=== PATIENT | female | born 1985 | race Two or more races ===

== ENCOUNTER 2016-12-10 20:59 | Emergency (ER) | payer SELFPAY ==
[2016-12-10] MEDS ORDERED: ONDANSETRON 4 MG TAB.RAPDIS PO ONE (23:12)
[2016-12-10] MEDS ORDERED: OXYCODONE-ACETAMINOPHEN 5-325 MG TABLET PO ONE (23:12)
--- NOTE | 2016-12-10 23:14 | ER Document Report ---
ED Medical Screen (RME) - General Chief Complaint: Back Pain Stated Complaint: BACK PAIN Time Seen by Provider: 12/10/16 23:12 Notes: 31-year-old female, chief complaint of upper abdominal pain and flank pain, she states if she eats she vomits, she was getting chills at home. Symptoms worsening over the past few days and now much worse today. Patient denies any urinary symptoms at all. Denies any medical history including surgery, medications, alcohol. 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 TRAVEL OUTSIDE OF THE [place] IN LAST 30 DAYS: No - Related Data Allergies/Adverse Reactions: No Known Allergies Allergy (Verified 12/10/16 22:11) Past Medical History - Social History Chew tobacco use (# tins/day): No Frequency of alcohol use: None Drug Abuse: None Renal/ Medical History: Denies: Hx Peritoneal Dialysis - Immunizations Hx Diphtheria, Pertussis, Tetanus Vaccination: No Physical Exam - Vital signs Vitals: Temp Pulse Resp BP Pulse Ox 97.6 F 69 20 126/84 H 99 12/10/16 22:14 12/10/16 22:14 12/10/16 22:14 12/10/16 22:14 12/10/16 22:14 - Abdominal Tenderness: Tender - Tender in right upper quadrant and epigastric areas - Back Back: No: Tender, CVA tenderness - Nontender bilaterally Course - Vital Signs Vital signs: Temp Pulse Resp BP Pulse Ox 97.6 F 69 20 126/84 H 99 12/10/16 22:14 12/10/16 22:14 12/10/16 22:14 12/10/16 22:14 12/10/16 22:14
[2016-12-11 00:40] LABS: ABSOLUTE BASOPHILS # (AUTO) 0.1 10^3/uL (0.0-0.2); ABSOLUTE EOSINOPHILS # (AUTO) 0.2 10^3/uL (0.0-0.6); ABSOLUTE LYMPHOCYTES (AUTO) 4.1 10^3/uL (0.5-4.7); ABSOLUTE MONOCYTES (AUTO) 0.8 10^3/uL (0.1-1.4); ABSOLUTE NEUT (AUTO) 6.8 10^3/uL (1.7-8.2); BASOPHILS % (AUTO) 0.5 % (0-2); EOSINOPHILS % (AUTO) 1.6 % (0-6); HEMATOCRIT 45.4 % (36.0-47.0); HEMOGLOBIN 15.1 g/dL (12.0-15.5); HGB HCT DIFFERENCE -0.1; LYMPHOCYTES % (AUTO) 34.2 % (13-45); MEAN CORPUSCULAR HEMOGLOBIN 29.9 pg (27.0-33.4); MEAN CORPUSCULAR HGB CONC 33.2 g/dL (32.0-36.0); MEAN CORPUSCULAR VOLUME 90 fl (80-97); MONOCYTES % (AUTO) 6.8 % (3-13); RED BLOOD COUNT 5.03 10^6/uL (3.72-5.28); RED CELL DISTRIBUTION WIDTH 12.7 % (11.5-14.0); SEGMENTED NEUTROPHILS % (AUTO) 56.9 % (42-78); WHITE BLOOD COUNT 11.9 10^3/uL (4.0-10.5)
[2016-12-11 00:46] LABS: APPEARANCE,URINE CLEAR; BILIRUBIN,URINE NEGATIVE (NEGATIVE); GLUCOSE, URINE NEGATIVE (NEGATIVE); KETONES,URINE NEGATIVE (NEGATIVE); LEUKOCYTE ESTERASE,URINE NEGATIVE (NEGATIVE); NITRITE,URINE NEGATIVE (NEGATIVE); PROTEIN,URINE NEGATIVE (NEGATIVE); URINE SPECIFIC GRAVITY 1.005; UROBILINOGEN,URINE NEGATIVE mg/dL (<2.0)
[2016-12-11 01:01] LABS: ALANINE AMINOTRANSFERASE 45 U/L (9-52); ALBUMIN 4.6 g/dL (3.5-5.0); ALKALINE PHOSPHATASE 68 U/L (38-126); ANION GAP 11 (5-19); ASPARTATE AMINO TRANSFERASE 25 U/L (14-36); BILIRUBIN,DIRECT 0.3 mg/dL (0.0-0.4); BILIRUBIN,TOTAL 0.6 mg/dL (0.2-1.3); BLOOD UREA NITROGEN 9 mg/dL (7-20); CALCIUM 10.3 mg/dL (8.4-10.2); CARBON DIOXIDE 28 mmol/L (22-30); CHLORIDE 101 mmol/L (98-107); CREATININE RESULT 0.66 mg/dL (0.52-1.25); GLUCOSE 92 mg/dL (75-110); LIPASE 60.1 U/L (23-300); POTASSIUM 4.2 mmol/L (3.6-5.0); SODIUM 139.6 mmol/L (137-145); TOTAL PROTEIN 7.7 g/dL (6.3-8.2)
--- NOTE | 2016-12-11 01:38 | RADIOLOGY REPORT (SQ) ---
EXAM DESCRIPTION: U/S ABDOMEN LIMITED W/O DOP COMPLETED DATE/TIME: 12/11/2016 12:58 am REASON FOR STUDY: RUQ pain, vomiting, chills COMPARISON: 7.31.15 TECHNIQUE: Dynamic and static grayscale images acquired of the abdomen and recorded on PACS. Additio nal selected color Doppler and spectral images recorded. LIMITATIONS: As below. FINDINGS: PANCREAS: Partially obscured due to bowel gas. LIVER: No masses. Mild hepatic steatosis. LIVER VASCULATURE: Normal directional flow of the main portal vein and hepatic veins. GALLBLADDER: No stones. Normal wall thickness. No pericholecystic fluid. ULTRASOUND-DETECTED MCCLENDON'S SIGN: Negative. INTRAHEPATIC DUCTS AND COMMON DUCT: 0.4 cm diameter CBD and intrahepatic ducts normal caliber. No joyce ling defects. INFERIOR VENA CAVA: Normal flow. AORTA: No aneurysm. RIGHT KIDNEY: Normal size. Normal echogenicity. No solid or suspicious masses. No hydronephrosis. No calcifications. PERITONEAL AND RIGHT PLEURAL SPACE: No ascites or effusions. OTHER: No other significant findings. IMPRESSION: No acute findings. Mild hepatic steatosis. Limited visualization of the pancreas. TECHNICAL DOCUMENTATION: JOB ID: [id number] [employer]- All Rights Reserved
--- NOTE | 2016-12-11 02:17 | ER Document Report ---
ED GI/ - General Chief Complaint: Back Pain Stated Complaint: BACK PAIN Time Seen by Provider: 12/10/16 23:12 Notes: Patient is a 31-year-old female, chief complaint of upper abdominal pain and flank pain, she states if she eats she vomits, she was getting chills at home. Symptoms worsening over the past few days and now much worse today. Patient denies any urinary symptoms at all. Denies any medical history including surgery, medications, alcohol. Patient Monegasque-speaking, used [employer] system. TRAVEL OUTSIDE OF THE [place] IN LAST 30 DAYS: No - Related Data Allergies/Adverse Reactions: No Known Allergies Allergy (Verified 12/10/16 22:11) Past Medical History - General Information source: Patient - Social History Smoking Status: Never Smoker Chew tobacco use (# tins/day): No Frequency of alcohol use: None Drug Abuse: None Lives with: Family Family History: Reviewed & Not Pertinent Patient has suicidal ideation: No Patient has homicidal ideation: No - Medical History Medical History: Negative Renal/ Medical History: Denies: Hx Peritoneal Dialysis Surgical Hx: Negative - Immunizations Immunizations up to date: Yes Hx Diphtheria, Pertussis, Tetanus Vaccination: Yes Review of Systems - Review of Systems Constitutional: No symptoms reported EENT: No symptoms reported Cardiovascular: No symptoms reported Respiratory: No symptoms reported Gastrointestinal: See HPI Genitourinary: See HPI Female Genitourinary: No symptoms reported Musculoskeletal: See HPI Skin: No symptoms reported Hematologic/Lymphatic: No symptoms reported Neurological/Psychological: No symptoms reported Physical Exam - Vital signs Vitals: Temp Pulse Resp BP Pulse Ox 97.6 F 69 20 126/84 H 99 12/10/16 22:14 12/10/16 22:14 12/10/16 22:14 12/10/16 22:14 12/10/16 22:14 Interpretation: Normal - General General appearance: Appears well In distress: None - patient calm and well appearing on re-evaluation - HEENT Head: Normocephalic, Atraumatic Eyes: Normal Conjunctiva: Normal Extraocular movements intact: Yes Eyelashes: Normal Pupils: PERRL Sinus: Normal Nasal: Normal Mouth/Lips: Normal Mucous membranes: Normal Pharynx: Normal Neck: Normal - Respiratory Respiratory status: No respiratory distress Chest status: Nontender Breath sounds: Normal. No: Decreased air movement, Wheezing Chest palpation: Normal - Cardiovascular Rhythm: Regular Heart sounds: Normal auscultation Murmur: No - Abdominal Inspection: Normal Distension: No distension Bowel sounds: Normal Tenderness: Tender - epigastric tenderness on exam, mild tenderness in the RUQ and LUQ. Lower abdomen is soft and unremarkable. Organomegaly: No organomegaly - Back Back: Normal, Nontender. No: Tender - Extremities General upper extremity: Normal inspection, Nontender, Normal color, Normal ROM , Normal temperature General lower extremity: Normal inspection, Nontender, Normal color, Normal ROM , Normal temperature, Normal weight bearing. No: Jayson's sign - Neurological Neuro grossly intact: Yes Cognition: Normal Orientation: AAOx4 Arline Coma Scale Eye Opening: Spontaneous [place] Coma Scale Verbal: Oriented [place] Coma Scale Motor: Obeys Commands [place] Coma Scale Total: 15 Speech: Normal Motor strength normal: LUE, RUE, LLE, RLE Sensory: Normal - Psychological Associated symptoms: Normal affect, Normal mood - Skin Skin Temperature: Warm Skin Moisture: Dry Skin Color: Normal Course - Re-evaluation Re-evalutation: CBC, chemistry, lipase, urine, hCG are all unremarkable. Ultrasound unremarkable as well, mild hepatic steatosis. Patient smiling and well- appearing on reexamination. Patient's symptoms happen every morning when she wakes up, has recently been worse after eating as well. Greatest suspicion at this time is gastritis/peptic ulcer disease, patient will be treated for this, also discussed possibility of gallbladder dyskinesis and recommendation of HIDA scan. Patient with no tenderness over her back, no CVA tenderness, unremarkable urine. Discussed follow-up and return precautions. 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 Patient states understanding and agreement. - Vital Signs Vital signs: Temp Pulse Resp BP Pulse Ox 97.5 F 57 L 18 137/82 H 98 12/11/16 02:39 12/11/16 02:39 12/11/16 02:39 12/11/16 02:39 12/11/16 02:39 - Laboratory Result Diagrams: 12/11/16 00:10 12/11/16 00:10 Laboratory results interpreted by me: 12/11/16 12/11/16 00:10 00:10 WBC 11.9 H Calcium 10.3 H Discharge - Discharge Clinical Impression: Upper abdominal pain, Flank pain Condition: Stable Disposition: HOME, SELF-CARE Additional Instructions: Rangel ultrasonido muestra robert vescula biliar normal. Erna anlisis de alex y orina son normales. Creo que esto es por la inflamacin en el estmago, clarisse vez robert lcera temprana, por favor tome los medicamentos para magaly (sucralfate y pepcid) todos los garcia, tome el phenergan si es necesario para las nuseas. Si erna sntomas no desaparecen, vaya a la oficina de referencia. Es posible que necesite robert exploracin HIDA. Vuelve a la [place] si algo no est kurt (vmitos ms , vmitos de alex, trevor kristen, dolor que empeora, fiebre, etc.). Prescriptions: Famotidine [Pepcid 20 mg Tablet] 20 mg PO BID #30 tablet Promethazine HCl [Phenergan 25 mg Tablet] 1 - 2 tab PO Q6H PRN #20 tablet PRN Reason: Sucralfate [Carafate 1 gm Tablet] 1 gm PO QID #20 tablet Forms: Return to Work Referrals: [facility] [Provider Group] - Follow up as needed
[2016-12-11] MEDS ORDERED: HYDROCODONE/ACETAMINOPHEN 5-325 MG 6 TAB/DSPK PO PRN (02:41)
[2016-12-11] MEDS ORDERED: SUCRALFATE 1 GM TABLET PO ONE (02:41)
[2016-12-11] MEDS ORDERED: FAMOTIDINE 20 MG TABLET PO ONE (02:41)
[2016-12-11 03:17] VITALS: BP 137/82
== END 2016-12-11 03:13 | disposition home or self-care (01) ==
LOC: ER 20:59
DX: R10.10 Upper abdominal pain, unspecified (principal); R10.9 Unspecified abdominal pain; K76.0 Fatty (change of) liver, not elsewhere classified; R11.10 Vomiting, unspecified; R68.83 Chills (without fever); R10.816 Epigastric abdominal tenderness; R10.811 Right upper quadrant abdominal tenderness; R10.812 Left upper quadrant abdominal tenderness
CPT/HCPCS: 99284; 36415; 83690; 85025; 81025; 80053; 81001; 76705; S0119

== ENCOUNTER 2016-12-28 13:42 | Emergency (ER) | payer SELFPAY ==
--- NOTE | 2016-12-28 13:52 | ER Document Report ---
ED Medical Screen (RME) - General Chief Complaint: Vaginal Bleeding Stated Complaint: VAGINAL BLEEDING X3 WEEKS Time Seen by Provider: 12/28/16 13:51 Notes: Vaginal bleeding for 3 weeks. I have greeted and performed a rapid initial assessment of this patient. A comprehensive ED assessment and evaluation of the patient, analysis of test results and completion of the medical decision making process will be conducted by additional ED providers. TRAVEL OUTSIDE OF THE [place] IN LAST 30 DAYS: No - Related Data Allergies/Adverse Reactions: No Known Allergies Allergy (Verified 12/28/16 13:44) Past Medical History Renal/ Medical History: Denies: Hx Peritoneal Dialysis - Immunizations Immunizations up to date: Yes Hx Diphtheria, Pertussis, Tetanus Vaccination: Yes Physical Exam - Vital signs Vitals: Temp Pulse Resp BP Pulse Ox 99.0 F 73 16 136/81 H 98 12/28/16 13:46 12/28/16 13:46 12/28/16 13:46 12/28/16 13:46 12/28/16 13:46 Course - Vital Signs Vital signs: Temp Pulse Resp BP Pulse Ox 99.0 F 73 16 136/81 H 98 12/28/16 13:46 12/28/16 13:46 12/28/16 13:46 12/28/16 13:46 12/28/16 13:46
[2016-12-28 14:10] LABS: ABSOLUTE EOSINOPHILS # (AUTO) 0.2 10^3/uL (0.0-0.6); ABSOLUTE MONOCYTES (AUTO) 0.7 10^3/uL (0.1-1.4); ABSOLUTE NEUT (AUTO) 5.6 10^3/uL (1.7-8.2); BASOPHILS % (AUTO) 0.5 % (0-2); EOSINOPHILS % (AUTO) 1.8 % (0-6); HEMATOCRIT 42.4 % (36.0-47.0); HEMOGLOBIN 14.2 g/dL (12.0-15.5); HGB HCT DIFFERENCE 0.2; LYMPHOCYTES % (AUTO) 31.3 % (13-45); MEAN CORPUSCULAR HEMOGLOBIN 30.5 pg (27.0-33.4); MEAN CORPUSCULAR HGB CONC 33.5 g/dL (32.0-36.0); MEAN CORPUSCULAR VOLUME 91 fl (80-97); MONOCYTES % (AUTO) 7.5 % (3-13); RED BLOOD COUNT 4.66 10^6/uL (3.72-5.28); RED CELL DISTRIBUTION WIDTH 12.8 % (11.5-14.0); SEGMENTED NEUTROPHILS % (AUTO) 58.9 % (42-78); WHITE BLOOD COUNT 9.5 10^3/uL (4.0-10.5)
[2016-12-28 14:31] LABS: ALANINE AMINOTRANSFERASE 34 U/L (9-52); ALBUMIN 4.2 g/dL (3.5-5.0); ALKALINE PHOSPHATASE 69 U/L (38-126); ANION GAP 11 (5-19); ASPARTATE AMINO TRANSFERASE 21 U/L (14-36); BILIRUBIN,DIRECT 0.2 mg/dL (0.0-0.4); BILIRUBIN,TOTAL 0.3 mg/dL (0.2-1.3); BLOOD UREA NITROGEN 13 mg/dL (7-20); CALCIUM 9.6 mg/dL (8.4-10.2); CARBON DIOXIDE 24 mmol/L (22-30); CHLORIDE 105 mmol/L (98-107); CREATININE RESULT 0.62 mg/dL (0.52-1.25); GLUCOSE 103 mg/dL (75-110); POTASSIUM 4.2 mmol/L (3.6-5.0); TOTAL PROTEIN 7.1 g/dL (6.3-8.2)
[2016-12-28] MEDS ORDERED: ONDANSETRON HCL 8 MG TABLET PO ONE (14:48)
--- NOTE | 2016-12-28 14:52 | ER Document Report ---
ED General - General Chief Complaint: Vaginal Bleeding Stated Complaint: VAGINAL BLEEDING X3 WEEKS Time Seen by Provider: 12/28/16 13:51 Mode of Arrival: Ambulatory Information source: Patient Notes: Roby used for translation: [id number] This is a 31-year-old Divehi-speaking female 7 para 6 (one termination of ), who presents to the emergency room with vaginal bleeding, lower abdominal cramping, low back pain. Patient's symptoms have been going on for 3 weeks. Patient's last normal period was October 20 and normally she is very regular. She states she did not have a period in the beginning of November which would have been normal for her. She started bleeding at the end of November and has continued to have bleeding and cramping pain. She does have a family history (mother) of uterine cancer and she is concerned about that. She does have an IUD which was placed a year and a half ago in the health department. Past medical history: None Medicines: None No known drug allergies TRAVEL OUTSIDE OF THE [place] IN LAST 30 DAYS: No - HPI Onset: Last week Onset/Duration: Gradual Quality of pain: Cramping Severity: None Pain Level: Denies Associated symptoms: denies: Chills, Fever, Shortness of breath Exacerbated by: Denies Relieved by: Denies Similar symptoms previously: No Recently seen / treated by doctor: No - Related Data Allergies/Adverse Reactions: No Known Allergies Allergy (Verified 12/28/16 13:44) Past Medical History - General Information source: Patient Last Menstrual Period: Dec 11 - Social History Smoking Status: Never Smoker Cigarette use (# per day): No Chew tobacco use (# tins/day): No - Vitamin D division go and then you did and did not come back here Smoking Education Provided: No Frequency of alcohol use: None Drug Abuse: None Lives with: Family - Never done one Family History: Reviewed & Not Pertinent Patient has suicidal ideation: No Patient has homicidal ideation: No - Medical History Medical History: Negative - Lateral canthotomy Renal/ Medical History: Denies: Hx Peritoneal Dialysis Surgical Hx: Negative - Immunizations Immunizations up to date: Yes Hx Diphtheria, Pertussis, Tetanus Vaccination: Yes Review of Systems - Review of Systems Constitutional: denies: Chills, Fever EENT: No symptoms reported Cardiovascular: No symptoms reported Respiratory: No symptoms reported Gastrointestinal: No symptoms reported Genitourinary: See HPI Female Genitourinary: See HPI Musculoskeletal: No symptoms reported Skin: No symptoms reported Hematologic/Lymphatic: No symptoms reported Neurological/Psychological: No symptoms reported Physical Exam - Vital signs Vitals: Temp Pulse Resp BP Pulse Ox 99.0 F 73 16 136/81 H 98 12/28/16 13:46 12/28/16 13:46 12/28/16 13:46 12/28/16 13:46 12/28/16 13:46 Notes: Physical exam: GENERAL: 31-year-old female, alert and oriented 3, no acute distress HEAD: Atraumatic, normocephalic. EYES: Pupils equal round and reactive to light, extraocular movements intact, sclera anicteric, conjunctiva are normal. ENT: TMs normal, nares patent, oropharynx clear without exudates. Moist mucous membranes. NECK: Normal range of motion, supple without obvious mass or JVD. LUNGS: Breath sounds clear to auscultation bilaterally and equal. No wheezes rales or rhonchi. HEART: Regular rate and rhythm without murmurs, rubs or gallops. ABDOMEN: Soft, normoactive bowel sounds. No tenderness to palpation. No guarding, no rebound. No masses appreciated. Pelvic: Blood in vault, firm cervix. No obvious mass. Unable to palpate the cervix on manual exam. No significant adnexal tenderness or obvious mass. EXTREMITIES: Normal range of motion, no pitting or edema. No clubbing or cyanosis. NEUROLOGICAL: Cranial nerves II through XII grossly intact. Normal speech, moving all extremities. PSYCH: Normal mood, normal affect. SKIN: Warm, Dry, normal turgor, no rashes or lesions noted. Course - Re-evaluation Re-evalutation: 12/28/16 16:34 Results of the ultrasound, labs were explained to the patient and her with the assistance of Roby. Discharge instructions were also given with the assistance from Roby - Vital Signs Vital signs: Temp Pulse Resp BP Pulse Ox 98.5 F 84 16 109/78 99 12/28/16 17:22 12/28/16 17:22 12/28/16 17:22 12/28/16 17:22 12/28/16 17:22 - Laboratory Result Diagrams: 12/28/16 14:00 12/28/16 14:00 Discharge - Discharge Clinical Impression: Menorrhagia Qualifiers: Menorrahagia type: with irregular cycle Qualified Code(s): N92.1 - Excessive and frequent menstruation with irregular cycle Condition: Stable Disposition: HOME, SELF-CARE Instructions: Menorrhagia ([facility]) Additional Instructions: Thank you for choosing [facility] for your care. The examination and treatment you have received in the Emergency Department today has been rendered on an emergency basis only and is not intended to be a substitute for complete medical care. You should contact your follow-up physician as it is important that he or she examine you for any new or remaining problems. If given a copy of any lab tests or radiology reports, please bring them with you when you see your physician. If your problem worsens or new symptoms appear and you are unable to arrange prompt follow-up care, return to the Emergency Department. Specific signs to look out for: Worsening pain, worsening bleeding Any other instructions: Take ibuprofen every 6 hours for the next few days. Take Zofran for nausea. Follow-up with the health department. Bring a copy of today's ultrasound report as well as labs with you when you go to the health department. [facility] - Follow up as needed
--- NOTE | 2016-12-28 15:47 | RADIOLOGY REPORT (SQ) ---
EXAM DESCRIPTION: U/S NON OB PEL TV W/DOPPLER COMPLETED DATE/TIME: 12/28/2016 3:34 pm REASON FOR STUDY: vaginal bleeding, cramping COMPARISON: None. TECHNIQUE: Dynamic and static grayscale images acquired of the pelvis via transvaginal approach and recorded on PACS. Additional selected color Doppler and spectral images recorded. LIMITATIONS: None. FINDINGS: UTERUS: IUD. Contour normal. No mass. ENDOMETRIAL STRIPE: No focal or generalized thickening. No masses. CERVIX: No nabothian cysts. RIGHT OVARY: No abnormal masses. RIGHT OVARY DOPPLER: Normal arterial vascular flow without evidence for torsion. LEFT OVARY: No abnormal masses. LEFT OVARY DOPPLER: Normal arterial vascular flow without evidence for torsion. FREE FLUID: None noted. OTHER: No other significant finding. MEASUREMENTS: UTERUS: 9.1 x 5.1 x 4.6 cm ENDOMETRIAL STRIPE: 10 mm RIGHT OVARY: 3.2 x 2.3 x 2.1 cm LEFT OVARY: 2.9 x 2.3 x 2.1 cm IMPRESSION: IUD. No acute findings. TECHNICAL DOCUMENTATION: JOB ID: [id number]- All Rights Reserved
[2016-12-28] MEDS ORDERED: ONDANSETRON ODT 4 MG TAB (6 TAB/DSPK) PO PRN (16:34)
[2016-12-28 17:24] VITALS: BP 109/78
== END 2016-12-28 17:39 | disposition home or self-care (01) ==
LOC: ER 13:42
DX: N92.1 Excessive and frequent menstruation with irregular cycle (principal); R10.30 Lower abdominal pain, unspecified; M54.5 Low back pain; Z97.5 Presence of (intrauterine) contraceptive device
CPT/HCPCS: 99284; 36415; 84703; 85025; 80053; 76830; 93976; S0119

== ENCOUNTER 2017-07-09 20:07 | Emergency (ER) | payer SELFPAY ==
--- NOTE | 2017-07-09 20:34 | ER Document Report ---
ED Medical Screen (RME) - General Chief Complaint: Chest Pressure Stated Complaint: CHEST PRESSURE Time Seen by Provider: 07/09/17 20:32 Mode of Arrival: Ambulatory Information source: Patient Notes: 31-year-old female presents with complaints of chest pressure sensation of months duration. Patient notes it causes her arms feel weak denies any shortness of breath difficulty breathing I have greeted and performed a rapid initial assessment of this patient. A comprehensive ED assessment and evaluation of the patient, analysis of test results and completion of the medical decision making process will be conducted by additional ED providers. Interpretation provided through [facility] PHYSICAL EXAMINATION: GENERAL: Well-appearing, well-nourished and in no acute distress. HEAD: Atraumatic, normocephalic. EYES: Pupils equal round extraocular movements intact, conjunctiva are normal. ENT: Nares patent NECK: Normal range of motion LUNGS: No respiratory distress Musculoskeletal: Normal range of motion NEUROLOGICAL: Normal speech, normal gait. PSYCH: Normal mood, normal affect. SKIN: Warm, Dry, normal turgor, no rashes or lesions noted. TRAVEL OUTSIDE OF THE [place] IN LAST 30 DAYS: No - Related Data Allergies/Adverse Reactions: No Known Allergies Allergy (Verified 12/28/16 13:44) Past Medical History Renal/ Medical History: Denies: Hx Peritoneal Dialysis - Immunizations Immunizations up to date: Yes Hx Diphtheria, Pertussis, Tetanus Vaccination: Yes Physical Exam - Vital signs Vitals: Temp Pulse Resp BP Pulse Ox 98 F 80 18 124/72 96 07/09/17 20:08 07/09/17 20:08 07/09/17 20:08 07/09/17 20:08 07/09/17 20:08 Course - Vital Signs Vital signs: Temp Pulse Resp BP Pulse Ox 98 F 80 18 124/72 96 07/09/17 20:08 07/09/17 20:08 07/09/17 20:08 07/09/17 20:08 07/09/17 20:08
[2017-07-09 21:18] LABS: ABSOLUTE BASOPHILS # (AUTO) 0.1 10^3/uL (0.0-0.2); ABSOLUTE LYMPHOCYTES (AUTO) 4.1 10^3/uL (0.5-4.7); ABSOLUTE MONOCYTES (AUTO) 0.7 10^3/uL (0.1-1.4); ABSOLUTE NEUT (AUTO) 6.1 10^3/uL (1.7-8.2); BASOPHILS % (AUTO) 0.8 % (0-2); EOSINOPHILS % (AUTO) 8.1 % (0-6); HEMATOCRIT 43.8 % (36.0-47.0); HEMOGLOBIN 14.7 g/dL (12.0-15.5); LYMPHOCYTES % (AUTO) 34.3 % (13-45); MEAN CORPUSCULAR HEMOGLOBIN 30.1 pg (27.0-33.4); MEAN CORPUSCULAR HGB CONC 33.7 g/dL (32.0-36.0); MEAN CORPUSCULAR VOLUME 89 fl (80-97); MONOCYTES % (AUTO) 6.1 % (3-13); PLATELET COUNT 392 10^3/uL (150-450); RED BLOOD COUNT 4.89 10^6/uL (3.72-5.28); RED CELL DISTRIBUTION WIDTH 12.9 % (11.5-14.0); SEGMENTED NEUTROPHILS % (AUTO) 50.7 % (42-78); TOTAL CELLS COUNTED % (AUTO) 100 %
[2017-07-09 21:31] LABS: ALANINE AMINOTRANSFERASE 42 U/L (9-52); ALBUMIN 4.5 g/dL (3.5-5.0); ALKALINE PHOSPHATASE 56 U/L (38-126); ANION GAP 11 (5-19); ASPARTATE AMINO TRANSFERASE 20 U/L (14-36); BILIRUBIN,DIRECT 0.1 mg/dL (0.0-0.4); BILIRUBIN,TOTAL 0.2 mg/dL (0.2-1.3); BLOOD UREA NITROGEN 15 mg/dL (7-20); CALCIUM 10.3 mg/dL (8.4-10.2); CARBON DIOXIDE 29 mmol/L (22-30); CHLORIDE 100 mmol/L (98-107); GLUCOSE 99 mg/dL (75-110); POTASSIUM 4.4 mmol/L (3.6-5.0); SODIUM 139.8 mmol/L (137-145); TOTAL PROTEIN 7.3 g/dL (6.3-8.2)
--- NOTE | 2017-07-09 21:53 | ER Document Report ---
ED General - General Chief Complaint: Chest Pressure Stated Complaint: CHEST PRESSURE Time Seen by Provider: 07/09/17 20:32 Mode of Arrival: Ambulatory Notes: Patient is a 31-year-old female that comes to the emergency department for chief complaint of pain in the left side of her chest and in her shoulder with pains also in her back. Pains have been almost daily, she states sometimes he will be sharp, she states sometimes it will make her feel weak in her shoulder, she states pain does resolve with time, symptoms have been going on for over a month. 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 She denies shortness of breath, nausea or vomiting, dizziness, cough, fever or chills, or any other locations of pain. She takes Synthroid for hypothyroidism, she does not smoke, she denies alcohol or recreational drugs, she denies family history of early cardiac disease. 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 TRAVEL OUTSIDE OF THE [place] IN LAST 30 DAYS: No - Related Data Allergies/Adverse Reactions: No Known Allergies Allergy (Verified 12/28/16 13:44) Past Medical History - General Information source: Patient - Social History Smoking Status: Never Smoker Chew tobacco use (# tins/day): No Frequency of alcohol use: None Drug Abuse: None Lives with: Family Family History: Reviewed & Not Pertinent Patient has suicidal ideation: No Patient has homicidal ideation: No - Medical History Medical History: Negative Renal/ Medical History: Denies: Hx Peritoneal Dialysis Surgical Hx: Negative - Immunizations Immunizations up to date: Yes Hx Diphtheria, Pertussis, Tetanus Vaccination: Yes Review of Systems - Review of Systems Constitutional: No symptoms reported EENT: No symptoms reported Cardiovascular: See HPI Respiratory: See HPI Gastrointestinal: No symptoms reported Genitourinary: No symptoms reported Female Genitourinary: No symptoms reported Musculoskeletal: See HPI Skin: No symptoms reported Hematologic/Lymphatic: No symptoms reported Neurological/Psychological: No symptoms reported Physical Exam - Vital signs Vitals: Temp Pulse Resp BP Pulse Ox 98 F 80 18 124/72 96 07/09/17 20:08 07/09/17 20:08 07/09/17 20:08 07/09/17 20:08 07/09/17 20:08 Interpretation: Normal - General General appearance: Appears well In distress: None - HEENT Head: Normocephalic, Atraumatic Eyes: Normal Conjunctiva: Normal Eyelashes: Normal Pupils: PERRL Sinus: Normal Nasal: Normal Mouth/Lips: Normal Mucous membranes: Normal Pharynx: Normal Neck: Normal - Respiratory Respiratory status: No respiratory distress Chest status: Tender - Patient with reproducible tenderness in the left lateral upper chest/pectoralis areas, worse with range of motion especially putting the left arm behind the back. Unremarkable chest examination otherwise Breath sounds: No: Decreased air movement Chest palpation: Normal - Cardiovascular Rhythm: Regular Heart sounds: Normal auscultation Murmur: No - Abdominal Inspection: Normal Distension: No distension Bowel sounds: Normal Tenderness: Nontender Organomegaly: No organomegaly - Back Back: Normal, Nontender - Extremities General upper extremity: Normal inspection, Nontender, Normal color, Normal ROM , Normal temperature General lower extremity: Normal inspection, Nontender, Normal color, Normal ROM , Normal temperature, Normal weight bearing. No: Jayson's sign - Neurological Neuro grossly intact: Yes Cognition: Normal Orientation: AAOx4 [place] Coma Scale Eye Opening: Spontaneous Arline Coma Scale Verbal: Oriented Arline Coma Scale Motor: Obeys Commands [place] Coma Scale Total: 15 Speech: Normal Motor strength normal: LUE, RUE, LLE, RLE Sensory: Normal - Psychological Associated symptoms: Normal affect, Normal mood - Skin Skin Temperature: Warm Skin Moisture: Dry Skin Color: Normal Course - Re-evaluation Re-evalutation: EKG sinus rhythm with no T-wave inversions or ST segment changes in consecutive leads. Chest x-ray unremarkable. CBC, CMP unremarkable, hCG is negative. 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 Very low suspicion of PE, ACS, aortic dissection. Appears to be musculoskeletal only. Discussed with patient, she is very satisfied with the workup, discussed recommendations, follow-up, return precautions, patient states understanding and agreement. - Vital Signs Vital signs: Temp Pulse Resp BP Pulse Ox 98.2 F 72 16 129/80 H 98 07/09/17 22:30 07/09/17 22:30 07/09/17 22:30 07/09/17 22:30 07/09/17 22:30 - Laboratory Result Diagrams: 07/09/17 20:40 07/09/17 20:40 Laboratory results interpreted by me: 07/09/17 07/09/17 20:40 20:40 WBC 12.0 H Eosinophils % 8.1 H Absolute Eosinophils 1.0 H Calcium 10.3 H Discharge - Discharge Clinical Impression: Chest wall pain, Muscle strain Back pain Qualifiers: Back pain location: back pain in unspecified location Chronicity: acute Back pain laterality: bilateral Qualified Code(s): M54.9 - Dorsalgia, unspecified Condition: Stable Disposition: HOME, SELF-CARE Additional Instructions: Your EKG, blood work, and chest x-ray are normal. Your pain along your pectoralis muscle, chest wall, and back appear to be only musculoskeletal. Apply heat to the area, rest, avoid heavy lifting, take naproxen for pain, use the muscle relaxer as prescribed as well. Follow-up with primary care. Return for any concerning symptoms including difficulty breathing, vomiting, passing out, or any other concerning or worsening symptoms. Prescriptions: Methocarbamol [Robaxin 750 mg Tablet] 750 mg PO Q6 PRN #20 tablet PRN Reason: Naproxen [Naprosyn 375 Mg Tablet] 375 mg PO BID PRN #20 tablet PRN Reason: Referrals: NIKOLAY ALFREDO MD [Primary Care Provider] - Follow up as needed
--- NOTE | 2017-07-09 22:07 | EKG REPORT ---
SEVERITY:- NORMAL ECG - SINUS RHYTHM : Confirmed by: Teresa Hollingsworth 09-Jul-2017 22:07:01
--- NOTE | 2017-07-09 22:14 | RADIOLOGY REPORT (SQ) ---
EXAM DESCRIPTION: CHEST PA/LAT COMPLETED DATE/TIME: 07/09/2017 9:50 pm REASON FOR STUDY: chest pain COMPARISON: None. EXAM PARAMETERS: NUMBER OF VIEWS: two views TECHNIQUE: Digital Frontal and Lateral radiographic views of the chest acquired. RADIATION DOSE: NA LIMITATIONS: none FINDINGS: LUNGS AND PLEURA: No consolidation, masses or pneumothorax. Calcified granuloma in the ri ght lung base. No pleural effusion. MEDIASTINUM AND HILAR STRUCTURES: No masses or contour abnormalities. HEART AND VASCULAR STRUCTURES: Heart normal size. No evidence for failure. BONES: No acute findings. HARDWARE: None in the chest. OTHER: No other significant finding. IMPRESSION: NO SIGNIFICANT RADIOGRAPHIC FINDING IN THE CHEST. TECHNICAL DOCUMENTATION: JOB ID: [id number] [place]-[id number] [employer]- All Rights Reserved Reading location - IP/workstation name: [email or web address]
[2017-07-09 22:30] VITALS: BP 129/80
== END 2017-07-09 22:31 | disposition home or self-care (01) ==
LOC: ER 20:07
DX: R07.89 Other chest pain (principal); M54.9 Dorsalgia, unspecified
CPT/HCPCS: 36415; 71046; 80053; 84703; 85025; 93005; 93010; 99284